=== PATIENT | male | born 1945 | race Caucasian/White ===

== ENCOUNTER 2016-05-30 09:40 | Emergency (ER) | payer OTHER ==
[~2016-05-30] VITALS: Ht 185.4 cm; Wt 63.5 kg
[~2016-05-30 09:40] MED LIST: AMLODIPINE10 MG PO; ATIVAN0.5 MG PO; CAPTOPRIL25 MG PO; CLONIDINE0.2 MG PO; DAILY MULTIPLE1 TAB PO; FOLIC ACID 1 MG PO; GOOD NEIGHBOR100 M5 PO; SIMVASTATIN20 M1 PO; TENORMIN 12.512.5 MG PO; TENORMIN 50MG T50 MG PO
--- NOTE | 2016-05-30 09:51 | ED UPPER/LOWER EXTREMITY COMPL ---
History of Present Illness General Chief Complaint: General Adult Stated Complaint: RLE PAIN /REDNESS Source: patient, EMS Exam Limitations: no limitations Vital Signs & Intake/Output Vital Signs & Intake/Output Vital Signs Date Time Temp Pulse Resp B/P Pulse O2 O2 Flow FiO2 Ox Delivery Rate 05/30 1200 96.8 66 20 136/65 98 Room Air 05/30 1153 97.0 58 18 145/64 02 1141 97.0 58 18 145/64 96 Room Air 05/30 0947 98.6 58 16 118/59 100 Room Air Allergies Coded Allergies: No Known Allergies (07/19/15) Reconcile Medications Amlodipine Besylate 5 MG TABLET 1 TAB PO DAILY HEART (Reported) Aspirin (Ecotrin*) 81 MG TABLET.DR 2 TAB PO DAILY HEART HEALTH (Reported) Atenolol (Tenormin 50MG Tab) 50 MG TAB 1 TAB PO DAILY BP Captopril 25 MG TAB 1 TAB PO BID HEART (Reported) Cephalexin (Keflex) 500 MG CAPSULE 1 CAP PO 4 TIMES/DAY CELLULITIS CLONIDINE HCL (Clonidine) 0.2 MG TAB 1 TAB PO QPM UNKNOWN (Reported) Folic Acid 1 MG TAB 1 MG PO DAILY FOLIC ACID SUPPLEMENT Multivitamin (Daily Multiple) 1 TAB TAB 1 TAB PO DAILY SUPPLEMENT Simvastatin 20 MG TAB 1 TAB PO DAILY CHOLESTEROL (Reported) Tamsulosin HCl 0.4 MG CAP.ER.24H 1 CAP PO DAILY PROSTATE (Reported) Thiamine ([facility] Vitamin B1) 100 MG TAB 100 MG PO DAILY SUPPLEMENT Triage Nurses Notes Reviewed? yes Onset: Abrupt Duration: day(s): (3) Timing: recent history Severity: moderate Pain/Injury Location: Right: Leg. Modifying Factors: Worsens With: movement. Associated Symptoms: swelling, redness HPI: This is a 70 year old male who presents via EMS from home for chief complaint of RLE pain and warmth x 3 days. He thought he twisted it in the snow and states that it is getting worse. No fall. Reports the pain goes up his leg. Today he called his friend to cancel their visit. Past History Medical History Any Pertinent Medical History? see below for history Cardiovascular: hypertension, hyperlipidemia Renal: urinary incontinence Musculoskeletal: LEFT KNEE FX History of MRSA: No History of VRE: No History of CDIFF: No Pneumonia Vaccine: 04/26/14 Surgical History Surgical History: non-contributory Psychosocial History Who do you live with Spouse Services at Home None What is your primary language Anguillan Family History Family History, If Any: FATHER FH: hypertension Hx Contributory? No Review of Systems Review of Systems Constitutional: Denies: fever. EENTM: Reports: no symptoms. Respiratory: Denies: short of breath. Cardiovascular: Denies: chest pain. Gastrointestinal/Abdominal: Reports: no symptoms. Genitourinary: Reports: no symptoms. Musculoskeletal: Reports: joint pain, joint swelling. Skin: Reports: erythema. Neurological/Psychological: Reports: no symptoms. Hematologic/Endocrine: Denies: bruising, bleeding, polyuria, polydipsia. Immunological: Reports: no symptoms. All Other Systems: Reviewed and Negative Physical Exam Physical Exam General Appearance: alert, awake, mild distress, thin Head: atraumatic, normal appearance Eyes: Bilateral: normal appearance, PERRL, EOMI. Ears, Nose, Throat: normal pharynx, hearing grossly normal Neck: normal inspection, supple, full range of motion Cardiovascular/Respiratory: normal breath sounds, normal peripheral pulses, regular rate/rhythm Peripheral Pulses: 2+ radial (R), 2+ radial (L) Gastrointestinal: SOFT NONTENDER Back: normal inspection Shoulder Left: normal range of motion, normal inspection Shoulder Right: normal range of motion, normal inspection Leg Left: normal range of motion, normal inspection Leg Right: swelling, soft tissue tenderness, MILD ERYTHEMA Hip Left: normal range of motion, normal inspection Hip Right: normal range of motion, normal inspection Knee Left: normal range of motion, normal inspection Knee Right: swelling, soft tissue tenderness, limited range of motion Foot Left: normal inspection, normal range of motion Foot Right: soft tissue tenderness, swelling Neurologic/Tendon: normal sensation, normal motor functions, normal tendon functions Skin: intact, normal color, warm/dry Diagram Legs Front/Back 1) 2) 2+ EDEMA 3) MILD ERYTHEMA Progress Differential Diagnosis: cellulitis, contusion, DVT, sprain, tendon injury, ANKLE SPRAIN, ANKLE FRACTURE Plan of Care: Orders Procedure Date/time Status BLOOD CULTURE 05/30 1012 Active URINALYSIS 05/30 1012 Complete TROPONIN LEVEL 05/30 1012 Complete PARTIAL THROMBOPLASTIN TIME 05/30 1012 Complete PROTHROMBIN TIME 05/30 1012 Complete PROSTATIC SPECIFIC ANTIGEN 05/30 1012 Complete COMPREHENSIVE METABOLIC PANEL 05/30 1012 Complete CBC WITHOUT DIFFERENTIAL 05/30 1012 Complete EKG 05/30 1012 Active Laboratory Tests 05/30/16 1100: Urine Color YEL, Urine Clarity CLEAR, Urine pH 7.0, Ur Specific [place] 1.010, Urine Protein NEG, Urine Ketones NEG, Urine Nitrite NEG, Urine Bilirubin NEG, Urine Urobilinogen 0.2, Ur Leukocyte Esterase NEG, Ur Microscopic EXAM NOT REQUIRED, Urine Hemoglobin NEG, Urine Glucose NEG 05/30/16 1030: Anion Gap 7, Estimated GFR > 60, BUN/Creatinine Ratio 18.6, Glucose 98, Calcium 8.7, Total Bilirubin 1.0, AST 12 L, ALT 28, Alkaline Phosphatase 55, Troponin I < 0.01, Total Protein 6.6, Albumin 3.3 L, Globulin 3.3, Albumin/Globulin Ratio 1.0 L, Total PSA 1.39, PT 12.6 H, INR 1.20 H, APTT 33, CBC w Diff NO MAN DIFF REQ, RBC 3.50 L, MCV 92.6, MCH 32.2 H, RDW 14.1, MPV 8.2, Gran % 70.5, Lymphocytes % 12.9 L, Monocytes % 13.3 H, Eosinophils % 1.7, Basophils % 1.6, Absolute Granulocytes 5.1, Absolute Lymphocytes 0.9 L, Absolute Monocytes 1.0 H, Absolute Eosinophils 0.1, Absolute Basophils 0.1, PUBS MCHC 34.8 Microbiology 05/30 1048 BLOOD: Blood Culture - RECD 05/30 1030 BLOOD: Blood Culture - RECD Diagnostic Imaging: Viewed by Me: Radiology Read, Ultrasound. Discussed w/RAD: Radiology Read, Ultrasound. Radiology Impression: PATIENT: AYLIN THOMAS PRESENT AGE: 70 PATIENT ACCOUNT NO: [id number] : 45 LOCATION: [facility] ORDERING PHYSICIAN: MEGAN SAMANIEGO MD SERVICE DATE: 05/30/16 EXAM TYPE: US - US-UNILATERAL VENOUS DOPPLER EXAMINATION: US TRIPLEX LOWER EXTREMITY UNILATERAL, RIGHT CLINICAL INFORMATION: Right lower extremity edema and swelling. COMPARISON: None. TECHNIQUE: Color-flow triplex imaging with spectral analysis and compression Doppler were performed on the right lower extremity. FINDINGS: Respiratory variation, normal compression and augmented flow are noted throughout the lower extremity. The visualized common femoral vein, proximal greater saphenous vein, femoral vein, profunda femoral vein, popliteal vein and visualized mid calf segments show no evidence of deep venous thrombosis. There is no Aquino's cyst. In the right inguinal region, there are 0.9 x 0.3 x 0.6 cm and 1.6 x 0.7 x 1.6 cm reniform lymph nodes. IMPRESSION: 1. Normal triplex scan without evidence of deep venous thrombosis involving the right lower extremity. 2. Shotty, nonpathologically enlarged right inguinal lymph nodes should be managed on a clinical basis. DICTATED BY: AURE SANTAMARIA MD DATE/TIME DICTATED:1129 BONDING MOLDER:ROYAL DATE/TIME TRANSCRIBED:05/30/161129 CONFIDENTIAL, DO NOT COPY WITHOUT APPROPRIATE AUTHORIZATION. <Electronically signed in Other Vendor System> SIGNED BY: AURE SANTAMARIA MD 05/30/161137, PATIENT: AYLIN THOMAS PRESENT AGE: 70 PATIENT ACCOUNT NO: [id number] : 45 LOCATION: [facility] ORDERING PHYSICIAN: MEGAN SAMAINEGO MD SERVICE DATE: 05/30/16 EXAM TYPE: RAD - XRY-ANKLE 3 OR MORE VIEWS R EXAMINATION: XR ANKLE, RIGHT CLINICAL INFORMATION: 70-year-old man with right ankle injury and swelling. COMPARISON: None TECHNIQUE: AP, lateral, and mortise views of the right ankle. FINDINGS: There is no evidence of acute fracture. Alignment remains anatomic. There is prominent soft tissue swelling over both the medial and lateral malleolus and there is probably a joint effusion as well. Prominent atherosclerotic calcifications are visible. IMPRESSION: No evidence of acute fracture or dislocation. Prominent soft tissue swelling over the medial and lateral malleolus with a presumed joint effusion. DICTATED BY: JENNIFER ARNETT MD DATE/TIME DICTATED:05/30/161200 BONDING MOLDER: ROYAL DATE/TIME TRANSCRIBED:05/30/161200 CONFIDENTIAL, DO NOT COPY WITHOUT APPROPRIATE AUTHORIZATION. <Electronically signed in Other Vendor System> SIGNED BY: JENNIFER ARNETT MD 05/30/161203 Initial ED EKG: NSR Departure Departure Time of Disposition: 1219 Disposition: HOME OR SELF CARE Condition: Stable Clinical Impression Primary Impression: Cellulitis of right leg Referrals: ALINA BALDWIN,OPAL Royal (PCP/Family) Additional Instructions: Take the Keflex as directed. Rest and elevate the leg. Take Aleve as needed for pain or fever. Return to the ER immediately for any worsening redness, pain , swelling, any fever or chills or vomiting. Departure Forms: Customer Survey General Discharge Information Prescriptions: Current Visit Scripts Cephalexin (Keflex) 1 CAP PO 4 TIMES/DAY #40 CAP
[2016-05-30] MEDS ORDERED: TAMSULOSIN HCL0.4 M1 PO (10:00)
[2016-05-30] MEDS ORDERED: AMLODIPINE BESYL5 M1 PO (10:01)
[2016-05-30] MEDS ORDERED: ASPIRIN EC81 M1 PO (10:01)
[2016-05-30 11:13] LABS: ABSOLUTE BASOPHIL COUNT 0.1 /CUMM (0.0-0.2); ABSOLUTE EOSINOPHIL COUNT 0.1 /CUMM (0.0-0.7); ABSOLUTE GRANULOCYTE CT 5.1 /CUMM (1.4-6.5); ABSOLUTE LYMPH COUNT 0.9 /CUMM (1.2-3.4); BASOPHIL % 1.6 % (0.0-2.0); EOSINOPHIL % 1.7 % (0-5); GRANULOCYTE % 70.5 % (42.2-75.2); HEMATOCRIT 32.4 % (42-52); MEAN CORPUSCULAR HGB 32.2 PG (27.0-31.0); MEAN CORPUSCULAR HGB CONC 34.8 G/DL (33.0-37.0); MEAN CORPUSCULAR VOLUME 92.6 FL (80.0-94.0); MEAN PLATELET VOLUME 8.2 FL (7.4-10.4); PLATELET COUNT 185 /CUMM (130-400); RBC DISTRIBUTION WIDTH 14.1 % (11.5-14.5); WHITE BLOOD CELL COUNT 7.2 /CUMM (4.8-10.8)
[2016-05-30 11:22] LABS: PT 12.6 SEC (9.4-12.5); PTT 33 SEC (25-37)
--- NOTE | 2016-05-30 11:38 | ULTRASOUND REPORT ---
EXAMINATION: US TRIPLEX LOWER EXTREMITY UNILATERAL, RIGHT CLINICAL INFORMATION: Right lower extremity edema and swelling. COMPARISON: None. TECHNIQUE: Color-flow triplex imaging with spectral analysis and compression Doppler were performed on the right lower extremity. FINDINGS: Respiratory variation, normal compression and augmented flow are noted throughout the lower extremity. The visualized common femoral vein, proximal greater saphenous vein, femoral vein, profunda femoral vein, popliteal vein and visualized mid calf segments show no evidence of deep venous thrombosis. There is no Aquino's cyst. In the right inguinal region, there are 0.9 x 0.3 x 0.6 cm and 1.6 x 0.7 x 1.6 cm reniform lymph nodes. IMPRESSION: 1. Normal triplex scan without evidence of deep venous thrombosis involving the right lower extremity. 2. Shotty, nonpathologically enlarged right inguinal lymph nodes should be managed on a clinical basis.
[2016-05-30 12:00] VITALS: BP 136/65
--- NOTE | 2016-05-30 12:04 | RADIOLOGY REPORT ---
EXAMINATION: XR ANKLE, RIGHT CLINICAL INFORMATION: 70-year-old man with right ankle injury and swelling. COMPARISON: None TECHNIQUE: AP, lateral, and mortise views of the right ankle. FINDINGS: There is no evidence of acute fracture. Alignment remains anatomic. There is prominent soft tissue swelling over both the medial and lateral malleolus and there is probably a joint effusion as well. Prominent atherosclerotic calcifications are visible. IMPRESSION: No evidence of acute fracture or dislocation. Prominent soft tissue swelling over the medial and lateral malleolus with a presumed joint effusion.
[2016-05-30] MEDS ORDERED: KEFLEX500 M1 PO (12:20)
== END 2016-05-30 12:23 ==
LOC: ERH 09:40
PROVIDERS: Emergency Medicine
DX: L03.115 Cellulitis of right lower limb (principal); I10 Essential (primary) hypertension
CPT/HCPCS: 73610-RT; 81003; 87040; 93005; 93010

== ENCOUNTER 2016-07-23 17:00 | Emergency (ER) | payer OTHER ==
[~2016-07-23 17:00] MED LIST changes: +AMLODIPINE BESYL5 M1 PO; +ASPIRIN EC81 M1 PO; +KEFLEX500 M1 PO; +TAMSULOSIN HCL0.4 M1 PO
--- NOTE | 2016-07-23 17:58 | ED GI/GU/ABDOMINAL COMPLAINT ---
History of Present Illness General Chief Complaint: Abdominal Pain/Flank Pain Stated Complaint: BIBA ABD PAIN Source: patient, police Exam Limitations: no limitations Vital Signs & Intake/Output Vital Signs & Intake/Output Vital Signs Date Time Temp Pulse Resp B/P Pulse O2 O2 Flow FiO2 Ox Delivery Rate 07/24 0742 98.6 76 18 132/85 98 Room Air ED Intake and Output 04/ 0000 07/24 1200 Intake Total Output Total 1000 Balance -1000 Output, Urine 1000 Allergies Coded Allergies: No Known Allergies (07/23/16) Triage Note: PT BIBNemo FROM POLICE CUSTODY FOR LOWER ABD PAIN FOR 5 HOURS. STATES IT CAME ON SLOWLY AND IS NOW 8/10. DENIES N/V/D. STATES HIS LAST BM WAS YESTERDAY AND NORMAL. STATES HE FEELS LIEK HE HAS TO HAVE A BM. STATES HE ALSO HAS A FEELING LIKE HE HAS TO URINATE BUT CAN'T Triage Nurses Notes Reviewed? yes HPI: Patient presents for evaluation of a lower abdominal pain while in custody. pt states pain began gradually in lower abd. the pain is constant mod to severe, getting worse and continues in ED. nothing makes him feel better. unable to urinate today and unable to move bowel for a few days. hx of prostate ca. (MARY JO BALDWIN,LUIGI Nolasco) Reconcile Medications Amlodipine Besylate 5 MG TABLET 1 TAB PO DAILY HEART (Reported) Aspirin (Ecotrin*) 81 MG TABLET.DR 2 TAB PO DAILY HEART HEALTH (Reported) Atenolol 50 MG TABLET 1 TAB PO DAILY HTN (Reported) Captopril 25 MG TABLET 1 TAB PO BID HTN (Reported) Clonidine HCl 0.2 MG TABLET 1 TAB PO QPM HTN (Reported) Folic Acid 1 MG TABLET 1 TAB PO DAILY SUPPLEMENT (Reported) Multivitamin (Daily Value) 1 EACH TABLET 1 TAB PO DAILY SUPPLEMENT (Reported) Simvastatin (Zocor*) 20 MG TABLET 1 TAB PO QPM HIGH CHOLESTEROL (Reported) Tamsulosin HCl 0.4 MG CAP.ER.24H 1 CAP PO DAILY PROSTATE (Reported) Thiamine HCl (B-1) 100 MG TABLET 1 TAB PO DAILY SUPPLEMENT (Reported) (SCOTT BALDWIN,MARIE) Past History Travel History Traveled to [place] past 21 day No Medical History Any Pertinent Medical History? see below for history Neurological: NONE Cardiovascular: hypertension, hyperlipidemia Respiratory: NONE Gastrointestinal: NONE Hepatic: NONE Renal: urinary incontinence Musculoskeletal: LEFT KNEE FX Psychiatric: NONE Endocrine: NONE Blood Disorders: NONE PRIVATE INQUIRY AGENT/Reproductive: NONE History of MRSA: No History of VRE: No History of CDIFF: No Surgical History Surgical History: non-contributory Psychosocial History Who do you live with Spouse Services at Home None What is your primary language Lithuanian Tobacco Use: Never used ETOH Use: denies use Illicit Drug Use: denies illicit drug use Family History Family History, If Any: FATHER FH: hypertension Hx Contributory? No (MARY JO BALDWIN,LUIGI Nolasco) Review of Systems Review of Systems Constitutional: Reports: no symptoms. EENTM: Reports: no symptoms. Respiratory: Reports: no symptoms. Cardiovascular: Reports: no symptoms. GI: Reports: no symptoms. Genitourinary: Reports: see HPI. Musculoskeletal: Reports: no symptoms. Skin: Reports: no symptoms. Neurological/Psychological: Reports: no symptoms. Hematologic/Endocrine: Reports: no symptoms. Immunologic/Allergic: Reports: no symptoms. All Other Systems: Reviewed and Negative (MARY JO BALDWIN,LUIGI Nolasco) Physical Exam Physical Exam Gastrointestinal: see below Comments: gen: wn, wd, no acute resp distress head: nc/at eyes: normal inspection ears: normal inspection nose: normal inspection throat/mouth: moist mucosa neck: supple, from, no goiter heart: rrr, no mrg lungs: cta bilaterally with normal air entry chest: nt abd: soft, nd, normal bowel sounds, suprapubic tenderness and fullness, bladder palpable and tender back: normal range of motion ext: normal range of motion, no cyanosis, clubbing or edema skin: warm and dry circulatory: normal radial pulses neuro: cn 2-12 grossly intact, speech clear psych: calm, cooperative, no apparent delusion, hallucinations or pressured speech Core Measures ACS in differential dx? No Severe Sepsis Present: No Septic Shock Present: No (MARY JO BALDWIN,LUIGI Nolasco) Progress Initial ED EKG: none Comments: 19:30 pts case d/w dr guillory due to acute urinary retention secondary to prostate ca. rn unable to pass rodrigues. dr guillory requested urology cart and would see pt in ed. however, rn able to straight cath pt and decompress bladder. ct ordered to assess cancer burden or other pathology. dr guillory updated. he felt pt pts bladder decompressed he could be discharged with f/u. attempt to pass smaller rodrigues also resonable. pt signed out to dr chavez at shift changeover. (MARY JO BALDWIN,LUIGI Nolasco) Differential Diagnosis: gastritis, pancreatitis, UTI/pyelo Plan of Care: Orders Procedure Date/time Status Regular Diet 07/24 B Active CULTURE,URINE 07/23 2253 Active Rodrigues, Insertion/Removal/Asses 07/23 185 Active LIPASE 07/23 1757 Complete COMPREHENSIVE METABOLIC PANEL 07/23 1757 Complete CBC WITHOUT DIFFERENTIAL 07/23 1757 Complete URINALYSIS 07/23 1752 Complete Laboratory Tests 07/23/16 1811: Anion Gap 16, Estimated GFR > 60, BUN/Creatinine Ratio 33.3 H, Glucose 102 H, Calcium 9.1, Total Bilirubin 0.9, AST 42, ALT 53, Alkaline Phosphatase 72, Total Protein 8.0, Albumin 4.6, Globulin 3.4, Albumin/Globulin Ratio 1.4, Lipase 91, CBC w Diff NO MAN DIFF REQ, RBC 4.03 L, MCV 91.7, MCH 30.4, RDW 14.8 H, MPV 7.3 L, Gran % 79.9 H, Lymphocytes % 14.0 L, Monocytes % 5.3, Eosinophils % 0.4, Basophils % 0.4, Absolute Granulocytes 5.6, Absolute Lymphocytes 1.0 L, Absolute Monocytes 0.4, Absolute Eosinophils 0, Absolute Basophils 0, PUBS MCHC 33.2 07/23/161753: Urine Color YEL, Urine Clarity CLEAR, Urine pH 7.0, Ur Specific [place] 1.015, Urine Protein TRACE H, Urine Ketones NEG, Urine Nitrite NEG, Urine Bilirubin NEG, Urine Urobilinogen 0.2, Ur Leukocyte Esterase NEG, Ur Microscopic SEDIMENT EXAMINED, Urine RBC RARE, Ur Epithelial Cells RARE, Urine Bacteria RARE H, Urine Hemoglobin TRACE-INTACT H, Urine Glucose NEG Microbiology 07/23 2245 URINE ROUT: Urine Culture - RES Diagnostic Imaging: Viewed by Me: Radiology Read. Discussed w/RAD: Radiology Read. Comments: coude placed, disimpacted, enema given with good results Police unable to take patient home. Discharged to court appointment. (SCOTT BALDWIN,MARIE) Departure Departure Condition: Stable (MARY JO BALDWIN,LUIGI Nolasco) Departure Disposition: HOME OR SELF CARE Clinical Impression Primary Impression: Acute urinary retention Secondary Impressions: Constipation Qualifiers: Constipation type: unspecified constipation type Qualified Code: K59.00 - Constipation, unspecified Referrals: MIRLANDE BALDWIN,JANETH FULLER MD,OPAL Royal (PCP/Family) Departure Forms: General Discharge Information (MARIE CHAVEZ MD) Referrals: MIRLANDE BALDWIN,JANETH FULLER MD,OPAL Royal (PCP/Family) Departure Forms: General Discharge Information (MARIE CHAVEZ MD)
[2016-07-23 18:23] LABS: ABSOLUTE BASOPHIL COUNT 0 /CUMM (0.0-0.2); ABSOLUTE EOSINOPHIL COUNT 0 /CUMM (0.0-0.7); ABSOLUTE GRANULOCYTE CT 5.6 /CUMM (1.4-6.5); ABSOLUTE MONOCYTE COUNT 0.4 /CUMM (0.10-0.60); BASOPHIL % 0.4 % (0.0-2.0); EOSINOPHIL % 0.4 % (0-5); GRANULOCYTE % 79.9 % (42.2-75.2); MEAN CORPUSCULAR HGB 30.4 PG (27.0-31.0); MEAN CORPUSCULAR HGB CONC 33.2 G/DL (33.0-37.0); MEAN CORPUSCULAR VOLUME 91.7 FL (80.0-94.0); MEAN PLATELET VOLUME 7.3 FL (7.4-10.4); PLATELET COUNT 182 /CUMM (130-400); RBC DISTRIBUTION WIDTH 14.8 % (11.5-14.5); RED BLOOD CELL CT 4.03 /CUMM (4.70-6.10)
--- NOTE | 2016-07-23 20:27 | CT SCAN REPORT ---
EXAMINATION: CT ABDOMEN AND PELVIS WITHOUT CONTRAST CLINICAL INFORMATION: Prostate cancer. Suprapubic pain and fullness. COMPARISON: None. TECHNIQUE: Contiguous axial thin section helical images of the abdomen and pelvis were performed without oral or IV contrast. The data set was reformatted in the coronal and sagittal planes and reviewed on an independent workstation. DLP: 264 mGy-cm. FINDINGS: Within the lateral segment of the right middle lobe, there is a 3 mm nodular density. There is a small focus of adjacent groundglass opacification. The lung bases are otherwise clear. The visualized portions of the heart are unremarkable. The liver is of normal size and attenuation without focal lesions nor intrahepatic biliary ductal dilation. A normal gallbladder is identified. There is no wall thickening or discernible pericholecystic fluid. The spleen, pancreas, adrenal glands are unremarkable. Both kidneys are of normal size and attenuation without hydronephrosis or nephrolithiasis. There is no abdominal free fluid. There is neither mesenteric nor retroperitoneal lymphadenopathy. There is a large amount of stool within the colon. There is no evidence of obstruction. Otherwise, unremarkable unopacified loops of small and large bowel are identified. A normal appendix is identified. There is no pelvic free fluid. A Geronimo catheter is in place. The urinary bladder is nearly empty. There is no discernible wall thickening, though the bladder is distended. There is neither pelvic nor inguinal lymphadenopathy. Bone windows: Neither sclerotic nor lytic bone lesions are identified. There is mild leftward curvature to the lumbar spine. IMPRESSION: Limited evaluation of the urinary bladder has a Geronimo catheter is in place and the bladder is decompressed. Large amount of stool throughout the colon. 3 mm nodular density within the lateral right middle lobe. There is adjacent nonspecific ground glass opacification. Various management parameters for solitary pulmonary nodules are in the literature. According to the Fleischner Society, recommendations for pulmonary nodules are as follows: Nodule size < or = to 4 mm in LOW RISK PATIENTS: No follow up needed. Nodule size < or = to 4 mm in HIGH RISK PATIENTS: Follow up CT at 12 months; if unchanged, no further follow up. Nodule size > 4-6 mm in LOW RISK PATIENTS: Follow up CT at 12 months; if unchanged, no further follow up. Nodule size > 4-6 mm in HIGH RISK PATIENTS: Initial follow up CT at 6-12 months, then at 18-24 months if no change. Nodule size > 6-8 mm in LOW RISK PATIENTS: Initial follow up CT at 6-12 months, then at 18-24 months if no change. Nodule size > 6-8 mm in HIGH RISK PATIENTS: Initial follow up CT at 3-6 months, then 9-12 months and 24 months if no change. Nodule size > 8 mm in LOW RISK PATIENTS: Follow up CT at around 3, 9, and 24 months, dynamic contrast-enhanced CT, PET, and/or biopsy. Nodule size > 8 mm in HIGH RISK PATIENTS: Same as for low-risk patients.
[2016-07-23] MEDS ORDERED: ATENOLOL50 M1 PO (23:06)
[2016-07-23] MEDS ORDERED: CAPTOPRIL25 M1 PO (23:07)
[2016-07-23] MEDS ORDERED: CLONIDINE HCL0.2 M1 PO (23:07)
[2016-07-23] MEDS ORDERED: FOLIC ACID1 M1 PO (23:08)
[2016-07-23] MEDS ORDERED: DAILY VALUE1 EACH PO (23:17)
[2016-07-23] MEDS ORDERED: ZOCOR20 M1 PO (23:17)
[2016-07-23] MEDS ORDERED: B-1100 MG PO (23:18)
[2016-07-24 07:42] VITALS: BP 132/85
== END 2016-07-24 07:48 ==
LOC: ERH 17:00
PROVIDERS: Emergency Medicine
DX: R33.9 Retention of urine, unspecified (principal); K59.00 Constipation, unspecified
CPT/HCPCS: 74176; 81001; 87086; 96374; 96375; J2405

== ENCOUNTER 2016-07-25 13:09 | Emergency (ER) | payer OTHER ==
[~2016-07-25] VITALS: Ht 185.4 cm; Wt 63.5 kg
[~2016-07-25 13:09] MED LIST changes: +ATENOLOL50 M1 PO; +B-1100 MG PO; +CAPTOPRIL25 M1 PO; +CLONIDINE HCL0.2 M1 PO; +DAILY VALUE1 EACH PO; +FOLIC ACID1 M1 PO; +ZOCOR20 M1 PO
[2016-07-25 13:18] VITALS: BP 135/80
--- NOTE | 2016-07-25 13:52 | ED GI/GU/ABDOMINAL COMPLAINT ---
History of Present Illness General Chief Complaint: Male Genitourinary Problems Stated Complaint: REQ CATHETER CHECK Source: patient, old records Exam Limitations: no limitations Vital Signs & Intake/Output Vital Signs & Intake/Output Vital Signs Date Time Temp Pulse Resp B/P Pulse O2 O2 Flow FiO2 Ox Delivery Rate 07/25 1318 98.2 56 18 135/80 98 Room Air Allergies Coded Allergies: No Known Allergies (07/23/16) Reconcile Medications Amlodipine Besylate 5 MG TABLET 1 TAB PO DAILY HEART (Reported) Aspirin (Ecotrin*) 81 MG TABLET.DR 2 TAB PO DAILY HEART HEALTH (Reported) Atenolol 50 MG TABLET 1 TAB PO DAILY HTN (Reported) Captopril 25 MG TABLET 1 TAB PO BID HTN (Reported) Clonidine HCl 0.2 MG TABLET 1 TAB PO QPM HTN (Reported) Folic Acid 1 MG TABLET 1 TAB PO DAILY SUPPLEMENT (Reported) Multivitamin (Daily Value) 1 EACH TABLET 1 TAB PO DAILY SUPPLEMENT (Reported) Simvastatin (Zocor*) 20 MG TABLET 1 TAB PO QPM HIGH CHOLESTEROL (Reported) Tamsulosin HCl 0.4 MG CAP.ER.24H 1 CAP PO DAILY PROSTATE (Reported) Thiamine HCl (B-1) 100 MG TABLET 1 TAB PO DAILY SUPPLEMENT (Reported) Triage Note: PT STATES THAT HE HAD RODRIGUEZ PLACED WEDNESDAY DUE TO URINARY RETENTION, STATES THAT HE WOULD LIKE IT REMOVED DUE TO HE IS TIRED OF HAVING TO EMPTY THE BAG EVERY HOUR. HAS UROLOGY APPOINTMENT 08/07. Triage Nurses Notes Reviewed? yes Onset: 2 days Duration: day(s):, constant, continues in ED Timing: recent history Quality/Severity: aching, moderate Location: urethral Radiation: no radiation Activities at Onset: none Prior Abdominal Problems: similar symptoms Past Sexual History: Unobtainable at this time No Modifying Factors: none HPI: 2 days prior to admission patient was seen for urinary retention and constipation. Rodriguez catheter was placed. He requests Rodriguez catheter removal. He denies fever chills nausea vomiting diarrhea abdominal pain chest pain shortness breath headache dysuria rash bleeding. Past History Travel History Traveled to [place] past 21 day No Medical History Any Pertinent Medical History? 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 No Review of Systems Review of Systems Constitutional: Reports: no symptoms. EENTM: Reports: no symptoms. Respiratory: Reports: no symptoms. Cardiovascular: Reports: no symptoms. GI: Reports: no symptoms. Genitourinary: Reports: see HPI. Musculoskeletal: Reports: no symptoms. Skin: Reports: no symptoms. Neurological/Psychological: Reports: no symptoms. Hematologic/Endocrine: Reports: no symptoms. Immunologic/Allergic: Reports: no symptoms. All Other Systems: Reviewed and Negative Physical Exam Physical Exam General Appearance: well developed/nourished, alert, awake, anxious, mild distress Head: atraumatic, normal appearance Eyes: Bilateral: normal appearance, PERRL, EOMI, normal inspection. Ears, Nose, Throat, Mouth: hearing grossly normal, moist mucous membrane Neck: normal inspection, supple, full range of motion, normal alignment Respiratory: normal breath sounds, chest non-tender, no respiratory distress, quiet respiration, lungs clear Cardiovascular: regular rate/rhythm, normal peripheral pulses, norml femoral pulses equa Peripheral Pulses: 4+ carotid (R), 4+ carotid (L) Gastrointestinal: normal bowel sounds, soft, non-tender, no organomegaly Male Genitals: normal genitalia Back: normal inspection, normal range of motion Extremities: normal range of motion, no ligament instability Neurologic/Psych: no motor/sensory deficits, awake, alert, oriented x 3, normal gait, normal mood/affect Skin: intact, normal color, warm/dry Core Measures ACS in differential dx? No Severe Sepsis Present: No Septic Shock Present: No Progress Differential Diagnosis: prostatitis, urinary retention Plan of Care: Discussed difficulty of Rodriguez catheter insertion the other day and likely recurrence of urinary retention the patient still requests rodriguez catheter be removed Initial ED EKG: none Departure Departure Time of Disposition: 1351 Disposition: HOME OR SELF CARE Condition: Stable Clinical Impression Primary Impression: Encounter for assessment of Rodriguez catheter Referrals: MIRLANDE BALDWIN,JANETH FULLER MD,OPAL Royal (PCP/Family) Departure Forms: Customer Survey General Discharge Information
== END 2016-07-25 14:01 ==
LOC: ERH 13:09
DX: Z43.6 Encounter for attention to other artificial openings of urinary tract (principal)

== ENCOUNTER 2017-05-17 12:34 | Emergency (ER) | payer OTHER ==
[~2017-05-17] VITALS: Ht 182.9 cm; Wt 68.0 kg
[2017-05-17 12:48] VITALS: BP 160/74
== END 2017-05-17 13:29 | disposition admitted as inpatient to this hospital (09) ==
LOC: ERH 12:34
DX: Z48.02 Encounter for removal of sutures (principal)

== ENCOUNTER 2017-06-19 16:36 | Emergency (ER) | payer OTHER ==
[~2017-06-19] VITALS: Ht 185.4 cm; Wt 63.5 kg
--- NOTE | 2017-06-19 16:38 | ED MVC/FALL/TRAUMA COMPLAINT ---
History of Present Illness General Chief Complaint: Fall Stated Complaint: FALL Source: patient, old records, EMS, friend Exam Limitations: no limitations Vital Signs & Intake/Output Vital Signs & Intake/Output Vital Signs Date Time Temp Pulse Resp B/P B/P Pulse O2 O2 Flow FiO2 Mean Ox Delivery Rate 06/19 2103 98.5 52 16 159/93 98 Room Air 06/19 2004 96 Room Air 06/19 1828 98.6 56 16 190/90 06/19 1828 98.6 56 16 190/90 06/19 1759 52 190/90 06/19 1759 98.2 54 16 190/90 99 Room Air ED Intake and Output 06/20 0000 06/19 1200 Intake Total 60 Output Total Balance 60 Intake, Oral 60 Patient 140 lb Weight Weight Reported by Patient Measurement Method Allergies Coded Allergies: No Known Allergies (07/23/16) Reconcile Medications Amlodipine Besylate 5 MG TABLET 1 TAB PO DAILY HEART (Reported) Aspirin (Ecotrin*) 81 MG TABLET.DR 2 TAB PO DAILY HEART HEALTH (Reported) Atenolol 50 MG TABLET 1 TAB PO DAILY HTN (Reported) Captopril 25 MG TABLET 1 TAB PO BID HTN (Reported) Clonidine HCl 0.2 MG TABLET 1 TAB PO QPM HTN (Reported) Folic Acid 1 MG TABLET 1 TAB PO DAILY SUPPLEMENT (Reported) Multivitamin (Daily Value) 1 EACH TABLET 1 TAB PO DAILY SUPPLEMENT (Reported) Simvastatin (Zocor*) 20 MG TABLET 1 TAB PO QPM HIGH CHOLESTEROL (Reported) Tamsulosin HCl 0.4 MG CAP.ER.24H 1 CAP PO DAILY PROSTATE (Reported) Thiamine HCl (B-1) 100 MG TABLET 1 TAB PO DAILY SUPPLEMENT (Reported) Triage Nurses Notes Reviewed? yes Onset: Abrupt Duration: week(s):, intermittent, waxing and waning Timing: recent history Severity: moderate Severity Numbers: 6 Injuries/Fall Location: no injury Loss of Consciousness: brief (seconds) No Modifying Factors: none Associated Symptoms: DENIES HPI: 71-year-old male with a past medical history of hypertension, HLD, PROSTATE CANCER who presents emergency room status post fall just prior to arrival. According to the patient's family and the patient he is been having several falls recently. He states when he gets up to stand his legs become very shaky and wobbly, and he falls to the ground. There was no injury from the fall today. The patient denies syncope however his friend who is at bedside states he witnessed the event and lowered him down to the ground and states that his eyes rolled backwards. He merely came to there was no seizure-like activity. He denies nausea vomiting chest pain. The patient states earlier today he was feeling dizzy. No recent changes in his medication he is on metoprolol and clonidine for his blood pressure. He was previously on 2 tablets of clonidine however states came on about a year ago. He is currently only taking 1 tablet. He is not followed by a ballistics expert forensic. No history of fainting in the past he denies any alcohol use today. No dizziness There was no injury from any of the previous falls with the fall today Patient is also requesting suture removal yet 7 sutures placed to his left eyebrow 1 month ago status post fall while intoxicated. He states he's come here however due to the wait he has left H time. He denies any redness warmth or pain at the site of the stitches (Kushal Castrejon) Past History Medical History Any Pertinent Medical History? 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 No (Kushal Castrejon) Review of Systems Review of Systems Constitutional: Reports: see HPI. Comments Review of systems: See HPI, All other systems negative. Constitutional, no chills no fever, no malaise HEENT: no sore throat no congestion, no ear pain Cardiovascular: No chest pain , no palpitation Skin: no rashes, no change in skin Respiratory: No dyspnea no cough no sputum GI: No nausea no vomiting, no diarrhea, no bloating/constipation : No dysuria No hematuria, no frequency Muscle skeletal: No joint pain, no back pain, no neck pain, Neurologic: , no headache Psych: stress Heme/endocrine: No bruising no bleeding Immunology: No lymphadenopathy (Kushal Castrejon) Physical Exam Physical Exam General Appearance: well developed/nourished, no apparent distress, alert Comments: Well-developed well-nourished person in no acute distress HEENT: Normal EENT exam; PERRL, EOMI, no nystagmus. HEAD is atraumatic. moist mucous membranes. Neck: Supple, no lymphadenopathy, normal range of motion without pain or tenderness Back: Nontender, no CVA tenderness. Full range of motion Cardiovascular: Regular rate and rhythms no murmurs rubs or gallops, normal JVP Respiratory: Chest nontender.There were no bony deformities, no asymmetry. No respiratory distress. Patient speaking in full complete sentences. Breath sounds clear to auscultation bilaterally: NO W/R/R Abdomen: Soft, nontender nondistended, no appreciable organomegaly. Normal bowel sounds. No rebound/guarding, No appreciable enlargement of the abdominal aorta, No ascites. Extremity: No edema, full range of motion of extremities, normal and equal pulses bilaterally, 5 out of 5 strength noted to bilateral upper and lower extremities Neuro: Alert oriented x3, motor sensory normal, cranial nerves II through XII grossly intact. There were no obvious focal neurologic abnormalities. Skin: No appreciable rash on exposed skin, skin is warm and dry. Psych: Mood and affect is normal, memory and judgment is normal. Core Measures ACS in differential dx? Yes CVA/TIA Diagnosis No Sepsis Present: No Sepsis Focused Exam Completed? No (Kushal Castrejon) Progress Differential Diagnosis: C/T/L spine injury, ext injury, ICH, spinal cord injury, vertebrobasilar DIESASE, vertigo, VALVULAR DISEASE, AMI, ELECTROLTYE ABNORMALITY, INTOXICATION, DEHYDRATION, CVA, ANEMIA, hyponatremia, orthostatic hypotension Plan of Care: Orders Procedure Date/time Status TROPONIN LEVEL 06/19 1999 Complete EKG 06/19 1999 Active MISTAKE 06/19 1648 Active Telemetry/Counselor At Law 06/19 164 Active TROPONIN LEVEL 06/19 1648 Complete ETHANOL 06/19 1648 Complete COMPREHENSIVE METABOLIC PANEL 06/19 1648 Complete CBC WITHOUT DIFFERENTIAL 06/19 164 Complete EKG 06/19 1648 Active Laboratory Tests 06/19/17 2017: Troponin I < 0.01 06/19/17 1714: Anion Gap 10, Estimated GFR > 60, BUN/Creatinine Ratio 21.3, Glucose 101 H, Calcium 9.0, Total Bilirubin 0.6, AST 13 L, ALT 24, Alkaline Phosphatase 45, Troponin I < 0.01, Total Protein 5.9 L, Albumin 3.7, Globulin 2.2, Albumin/ Globulin Ratio 1.7, CBC w Diff NO MAN DIFF REQ, RBC 4.06 L, MCV 97.4 H, MCH 31.6 H, MCHC 32.5 L, RDW 14.0, MPV 7.4, Gran % 65.0, Lymphocytes % 16.9 L, Monocytes % 13.9 H, Eosinophils % 3.4, Basophils % 0.8, Absolute Granulocytes 4.7, Absolute Lymphocytes 1.2, Absolute Monocytes 1.0 H, Absolute Eosinophils 0.2, Absolute Basophils 0.1, Serum Alcohol < 10.0 Patient denies any complaints at this time labs CAT scan chest x-ray ordered patient seen and evaluated by Dr. Sibley agrees with plan 7 sutures to the left eyebrow were removed by me no wound dehisence orthos negative however pt noted to be hypertensive, he did not take his meds today, metoprolol 50mg po and clonidine 0.1mg po ordered. I discussed with patient was lab results and CAT scan findings to date he agrees with plan to repeat troponin at 8:00 PM Patient has been ambulatory here in the emergency room with steady gait in asymptomatic with ambulation. according to [facility] syncope rules: Patient IS in the low-risk group for serious outcome. 06/19/2017 9:04:29 PM I discussed with the patient at length all of his lab results and repeat troponin he is had no episodes here in the department able toward without complaints blood pressure responded with his medications he'll be provided with information for follow-up with his primary care physician as well as ballistics expert forensic Dr. Peacock as advised he have follow-up regarding his blood pressure which did respond with medication which she is currently on at home. Return precautions were discussed at length he feels comfortable plan Diagnostic Imaging: Viewed by Me: Radiology Read, CT Scan. Discussed w/RAD: Radiology Read, CT Scan. Radiology Impression: PATIENT: AYLIN THOMAS PRESENT AGE: 71 PATIENT ACCOUNT NO: [id number] : 45 LOCATION: [facility] ORDERING PHYSICIAN: Kushal PRIEST SERVICE DATE: 06/19/17 EXAM TYPE: CAT - CT HEAD WO IV CONTRAST EXAMINATION: CT HEAD WITHOUT CONTRAST CLINICAL INFORMATION: Syncope. Fall hit head. COMPARISON: Head CT 05/10/2017. TECHNIQUE: Contiguous axial imaging was performed from the skull base to vertex without intravenous administration of contrast. DLP: 620 mGy-cm. FINDINGS: There is no intracranial hemorrhage, large infarction, or mass lesion. There is no extra- axial collection. There is mild scattered hypoattenuation in the bilateral cerebral white matter, which is nonspecific but likely reflects small vessel disease. There is mild diffuse brain parenchymal volume loss with prominence of the ventricles and sulci. The paranasal sinuses are clear. The mastoids and middle ear cavities are clear. There are atherosclerotic calcification of the carotid siphons and vertebral arteries. IMPRESSION: No acute intracranial abnormality identified. DICTATED BY: Ya Malone MD DATE/TIME DICTATED:06/19 BOX NAILER:ROYAL DATE/TIME TRANSCRIBED:06/19/171746 CONFIDENTIAL, DO NOT COPY WITHOUT APPROPRIATE AUTHORIZATION. <Electronically signed in Other Vendor System> SIGNED BY: Ya Malone MD 06/19/171751, PATIENT: AYLIN THOMAS PRESENT AGE: 71 PATIENT ACCOUNT NO: [id number] : 45 LOCATION: [facility] ORDERING PHYSICIAN: Kushal PRIEST SERVICE DATE: 06/19/17 EXAM TYPE: RAD - XRY-PORTABLE CHEST XRAY EXAMINATION: XR PORTABLE CHEST CLINICAL INFORMATION: Syncope. COMPARISON: Chest done on 07/18/2015. TECHNIQUE: Portable frontal view of the chest was obtained. FINDINGS: Both lungs are symmetrically expanded, and appear clear. The cardiomediastinal silhouette is within normal limits. There is no pleural effusion or pneumothorax present. The visualized upper abdomen is unremarkable. No significant change. IMPRESSION: Unremarkable examination. DICTATED BY: Luzma Alcaraz MD DATE/TIME DICTATED:06/19/171807 BOX NAILER:[id number] DATE/ TIME TRANSCRIBED:06/19/171807 CONFIDENTIAL, DO NOT COPY WITHOUT APPROPRIATE AUTHORIZATION. <Electronically signed in Other Vendor System> SIGNED BY: Luzma Alcaraz MD 06/19/17 2082 Initial ED EKG: normal QRS complex, normal sinus rhythm, nonspecific ST T wave chg Prior EKG: unchanged Rhythm Strip: normal sinus rhythm (Kushal Castrejon) Departure Departure Disposition: HOME OR SELF CARE Condition: Stable Clinical Impression Primary Impression: Lightheadedness Referrals: Monique BALDWIN,Barber Royal (PCP/Family) Alejandra Peacock MD Additional Instructions: Follow up with your pmd regarding your blood pressure as well as ballistics expert forensic dr peacock this week. drink plenty of fluids, rest, take your time standing up. return at anytime sooner with any concerns Departure Forms: Customer Survey General Discharge Information (Kushal Castrejon) PA/DOPEMAN Co-Sign Statement Statement: ED Attending supervision documentation- [X] I saw and evaluated the patient. I have also reviewed all the pertinent lab results and diagnostic results. I agree with the findings and the plan of care as documented in the PA's/DOPEMAN's documentation. [] I have reviewed the ED Record and agree with the PA's/DOPEMAN's documentation. [] Additions or exceptions (if any) to the PAs/DOPEMAN's note and plan are summarized below: [] (Rakesh Sibley DO
[2017-06-19 17:24] LABS: ABSOLUTE BASOPHIL COUNT 0.1 /CUMM (0.0-0.2); ABSOLUTE EOSINOPHIL COUNT 0.2 /CUMM (0.0-0.7); ABSOLUTE GRANULOCYTE CT 4.7 /CUMM (1.4-6.5); ABSOLUTE LYMPH COUNT 1.2 /CUMM (1.2-3.4); BASOPHIL % 0.8 % (0.0-2.0); EOSINOPHIL % 3.4 % (0-5); HEMATOCRIT 39.5 % (42-52); MEAN CORPUSCULAR HGB 31.6 PG (27.0-31.0); MEAN CORPUSCULAR HGB CONC 32.5 G/DL (33.0-37.0); MEAN CORPUSCULAR VOLUME 97.4 FL (80.0-94.0); MEAN PLATELET VOLUME 7.4 FL (7.4-10.4); PLATELET COUNT 278 /CUMM (130-400); RED BLOOD CELL CT 4.06 /CUMM (4.70-6.10); WHITE BLOOD CELL COUNT 7.2 /CUMM (4.8-10.8)
--- NOTE | 2017-06-19 17:52 | CT SCAN REPORT ---
EXAMINATION: CT HEAD WITHOUT CONTRAST CLINICAL INFORMATION: Syncope. Fall hit head. COMPARISON: Head CT 05/10/2017. TECHNIQUE: Contiguous axial imaging was performed from the skull base to vertex without intravenous administration of contrast. DLP: 620 mGy-cm. FINDINGS: There is no intracranial hemorrhage, large infarction, or mass lesion. There is no extra-axial collection. There is mild scattered hypoattenuation in the bilateral cerebral white matter, which is nonspecific but likely reflects small vessel disease. There is mild diffuse brain parenchymal volume loss with prominence of the ventricles and sulci. The paranasal sinuses are clear. The mastoids and middle ear cavities are clear. There are atherosclerotic calcification of the carotid siphons and vertebral arteries. IMPRESSION: No acute intracranial abnormality identified.
--- NOTE | 2017-06-19 19:04 | RADIOLOGY REPORT ---
EXAMINATION: XR PORTABLE CHEST CLINICAL INFORMATION: Syncope. COMPARISON: Chest done on 07/18/2015. TECHNIQUE: Portable frontal view of the chest was obtained. FINDINGS: Both lungs are symmetrically expanded, and appear clear. The cardiomediastinal silhouette is within normal limits. There is no pleural effusion or pneumothorax present. The visualized upper abdomen is unremarkable. No significant change. IMPRESSION: Unremarkable examination.
[2017-06-19 21:04] VITALS: BP 159/93
== END 2017-06-19 21:16 ==
LOC: ERH 16:36
PROVIDERS: Physician Assistant Medical
DX: R42 Dizziness and giddiness (principal)
CPT/HCPCS: 71045; 93005; 93010; G0480